=== PATIENT | male | born 1965 | race Caucasian/White ===

== ENCOUNTER 2025-01-31 09:02 | Outpatient (CLI) | payer OTHER, SELFPAY ==
--- NOTE | ~2025-01-31 | XR_ITS ---
EXAMINATION: XR chest 2V, 01/31/2025 9:14 CDT HISTORY: Acute cough COMPARISON: No comparisons available. Technique: 2 views obtained. Findings: The lungs are clear, no effusion. No pneumothorax. Heart is normal size. Mediastinal and hilar contours are within normal limits. Bony thorax no acute abnormality. Impression: No acute cardiopulmonary abnormality. Reviewed, dictated and finalized at location P. Impression: No acute cardiopulmonary abnormality.
== END 2025-01-31 09:03 | disposition home or self-care (01) ==
PROVIDERS: PCP Family Medicine; Visit Provider Family Medicine
DX: R05.1 Acute cough (principal)
CPT/HCPCS: 71046